=== PATIENT | male | born 1950 | race Caucasian/White ===

== ENCOUNTER → 2024-01-25 13:11 | Outpatient (REF) | payer OTHER, SELFPAY | LOC: MRI 3T 13:11 | PROVIDERS: ATTENDING PHYSICIAN Psychiatry & Neurology Neurology; FAMILY PHYSICIAN Family Medicine | DX: D36.13 Benign neoplasm of peripheral nerves and autonomic nervous system of lower limb, including hip (principal) | CPT/HCPCS: 73723; A9575 ==

== ENCOUNTER → 2024-02-01 09:17 | Outpatient (REF) | payer OTHER, SELFPAY | LOC: DHCBS MAIN 09:17 | PROVIDERS: ATTENDING PHYSICIAN Internal Medicine Cardiovascular Disease; FAMILY PHYSICIAN Family Medicine | DX: I10 Essential (primary) hypertension (principal); I38 Endocarditis, valve unspecified; R01.1 Cardiac murmur, unspecified | CPT/HCPCS: 93306 ==

== ENCOUNTER → 2025-01-17 07:36 | Outpatient (REF) | payer OTHER, SELFPAY | LOC: MRI 3T 07:36 | PROVIDERS: ATTENDING PHYSICIAN Surgery; FAMILY PHYSICIAN Family Medicine | DX: R97.20 Elevated prostate specific antigen [PSA] (principal) | CPT/HCPCS: 72197; A9575 ==